=== PATIENT | male | born 1990 | race Caucasian/White ===

== ENCOUNTER 2020-12-11 18:03 | Emergency (ER) | payer SELFPAY ==
[~2020-12-11 18:03] MED LIST: AUGMENTIN 875-1 EACH PO
[2020-12-11 19:35] LABS: HEMOGLOBIN 14.1 gm/dl (14.0-17.5); RED BLOOD COUNT 4.87 M/UL (4.20-5.50); WHITE BLOOD COUNT 12.3 K/UL (4.5-11.0)
[2020-12-11 21:07] LABS: BUN/CREATININE RATIO 13 (0-10)
== END 2020-12-12 00:09 | disposition home or self-care (01) ==
LOC: ER1 18:03
PROVIDERS: Physician Assistant Medical
DX: T40.1X1A Poisoning by heroin, accidental (unintentional), initial encounter (principal); F17.210 Nicotine dependence, cigarettes, uncomplicated
CPT/HCPCS: 71045; 80053; 80307; 81001; 85025; 93005; 96374; 99284; G0480; J2405; J7030

== ENCOUNTER 2021-05-04 04:26 | Emergency (ER) | payer SELFPAY ==
[2021-05-04 04:49] LABS: HEMOGLOBIN 16.2 gm/dl (14.0-17.5); RED BLOOD COUNT 5.43 M/UL (4.20-5.50); WHITE BLOOD COUNT 8.2 K/UL (4.5-11.0)
[2021-05-04 05:17] LABS: BUN/CREATININE RATIO 11 (0-10)
== END 2021-05-04 06:00 | disposition home or self-care (01) ==
LOC: ER1 04:26
PROVIDERS: Family Medicine
DX: F11.10 Opioid abuse, uncomplicated (principal); R00.0 Tachycardia, unspecified; F17.200 Nicotine dependence, unspecified, uncomplicated
CPT/HCPCS: 80053; 82550; 82553; 83874; 84439; 84443; 84484; 85025; 93005; 99284